=== PATIENT | female | born 1980 | race African-American/Black ===

== ENCOUNTER 2016-09-15 19:46 | Outpatient (CLI) | payer SELFPAY ==
[~2016-09-15] VITALS: Ht 160 cm; Wt 85.0 kg
[~2016-09-15 19:46] MED LIST: NORCO 325 MG-51 TAB PO
[2016-09-15 19:48] VITALS: BP 112/71; PULSE 90; TEMP 98.3
== END 2016-09-15 21:35 | disposition home or self-care (01) ==
LOC: LDRO 19:46 → LDR 19:47 → LDRO 21:35
DX: O47.03 False labor before 37 completed weeks of gestation, third trimester (principal); O09.33 Supervision of pregnancy with insufficient antenatal care, third trimester; O99.333 Smoking (tobacco) complicating pregnancy, third trimester; F17.210 Nicotine dependence, cigarettes, uncomplicated; Z3A.36 36 weeks gestation of pregnancy
CPT/HCPCS: OP

== ENCOUNTER 2016-10-02 12:25 | Inpatient (IN) | payer SELFPAY ==
[~2016-10-02] VITALS: Ht 160 cm; Wt 86.4 kg
[2016-10-02] VITALS (18 sets, daily range): BP systolic 92–135; BP diastolic 48–84; PULSE 67–86; TEMP 97.4–98.2
[2016-10-02 12:51] LABS: BASO % 0.3 % (0.0-2.0); EOS # 0.1 (0.0-0.7); EOS % 0.5 % (0-4.0); GRAN # 10.1 (1.4-6.5); GRAN % 77.7 % (42.2-75.2); LYMPH # 1.6 (1.2-3.4); LYMPH % 12.2 % (20.0-51.0); MEAN CELL VOLUME 79 fl (80.0-100.0); MEAN CORPUSCULAR HGB CONC 32 g/dl (33.0-37.0); MEAN PLATELET VOLUME 11.1 fl (7.4-10.4); MONO # 1.1 (0.1-0.6); MONO % 8.6 % (1.7-9.3); PLATELET COUNT 187 K/mm3 (130-400); RED BLOOD COUNT 4.07 M/mm3 (4.10-5.30); REDCELL DISTRIBUTION WIDTH-CV 14.6 % (11.5-14.5)
[2016-10-02 12:58] LABS: HEMOGLOBIN 10.3 g/dl (12.5-16.0); MEAN CORPUSCULAR HEMOGLOBIN 25 pg (27.0-31.0)
[2016-10-02 13:18] LABS: AMPHETAMINE URINE NEGATIVE; BARBITURATES URINE NEGATIVE; BENZODIAZEPINES URINE NEGATIVE; BUPRENORPHINE URINE NEGATIVE; METHADONE URINE NEGATIVE; OPIATES URINE NEGATIVE; OXYCODONE URINE NEGATIVE; PHENCYCLIDINE URINE NEGATIVE; PROPOXYPHENE URINE NEGATIVE; THC CANNABINOIDS URINE NEGATIVE
[2016-10-03 05:23] VITALS: BP 115/84; PULSE 83; TEMP 97.8
[2016-10-03 09:00] VITALS: BP 123/67; PULSE 86; TEMP 98
[2016-10-03 12:15] VITALS: BP 117/67; PULSE 83; TEMP 97.6
[2016-10-03 17:00] VITALS: BP 115/70; PULSE 83; TEMP 97.6
[2016-10-03 19:30] VITALS: BP 100/56; PULSE 86; TEMP 98.6
[2016-10-04 07:15] VITALS: BP 113/71; PULSE 83
[2016-10-04] MEDS ORDERED: IBU800 M1 PO (09:13)
[2016-10-04] MEDS ORDERED: PERCOCET 325 MG1 TA2 PO (09:14)
[2016-10-04 16:25] VITALS: BP 112/72; PULSE 79; TEMP 98.5
[2016-10-04 21:00] VITALS: BP 121/68; PULSE 87; TEMP 98
[2016-10-05 01:00] VITALS: BP 118/70; PULSE 72; TEMP 98.2
[2016-10-05 08:14] VITALS: BP 118/62; PULSE 72
== END 2016-10-05 15:35 | disposition home or self-care (01) | DRG 766 ==
LOC: LDRO 12:25 → LDR 12:30 → OB 12:30
PROVIDERS: Obstetrics & Gynecology
PROC: 10D00Z0 Extraction of Products of Conception, High, Open Approach (ICD-10-PCS; principal; 2016-10-02)
DX: O42.02 Full-term premature rupture of membranes, onset of labor within 24 hours of rupture (principal); O77.0 Labor and delivery complicated by meconium in amniotic fluid; O34.211 Maternal care for low transverse scar from previous cesarean delivery; N85.8 Other specified noninflammatory disorders of uterus; O09.33 Supervision of pregnancy with insufficient antenatal care, third trimester; O99.334 Smoking (tobacco) complicating childbirth; F17.210 Nicotine dependence, cigarettes, uncomplicated; O09.523 Supervision of elderly multigravida, third trimester; Z3A.39 39 weeks gestation of pregnancy; Z37.0 Single live birth
CPT/HCPCS: J0690; J2175; J2250; J2270; J2370; J2405; J7120

== ENCOUNTER 2018-06-22 14:46 | Emergency (ER) | payer SELFPAY ==
[~2018-06-22] VITALS: Ht 160 cm; Wt 90.0 kg
[~2018-06-22 14:46] MED LIST changes: +IBU800 M1 PO; +PERCOCET 325 MG1 TA2 PO
[2018-06-22 14:53] VITALS: BP 129/70; TEMP 98.9
[2018-06-22 15:45] LABS: COLLECTION METHOD CLEAN CATCH
[2018-06-22 16:05] LABS: MUCOUS Present /lpf; PH 6 (5-8); SQUAMOUS EPITHELIAL 0-2 /hpf; URINE APPEARANCE Clear; URINE BACTERIA None Seen /hpf; URINE BILIRUBIN Negative (NEGATIVE); URINE BLOOD Negative (NEGATIVE); URINE COLOR Yellow; URINE GLUCOSE Negative (NEGATIVE); URINE KETONE Negative (NEGATIVE); URINE LEUKOCYTE ESTERASE Negative (NEGATIVE); URINE NITRATE Negative (NEGATIVE); URINE PROTEIN(semi-quant) Negative (NEGATIVE); URINE RBC 0-2 /hpf; URINE UROBILINOGEN Negative (NEGATIVE)
[2018-06-22 16:23] VITALS: PULSE 86
== END 2018-06-22 16:34 | disposition home or self-care (01) ==
LOC: COL.ER 14:46
PROVIDERS: Physician Assistant
DX: Z32.00 Encounter for pregnancy test, result unknown (principal); Z98.890 Other specified postprocedural states; Z87.891 Personal history of nicotine dependence

== ENCOUNTER 2018-08-04 13:47 | Emergency (ER) | payer MEDICAID ==
[~2018-08-04] VITALS: Ht 160 cm; Wt 90.0 kg
[2018-08-04 13:58] VITALS: TEMP 98.1
[2018-08-04 14:45] VITALS: BP 128/59; PULSE 69
== END 2018-08-04 14:47 | disposition home or self-care (01) ==
LOC: COL.ER 13:47
DX: H61.21 Impacted cerumen, right ear (principal)

== ENCOUNTER 2018-12-01 13:27 | Emergency (ER) | payer MEDICAID ==
[~2018-12-01] VITALS: Ht 160 cm; Wt 81.8 kg
[2018-12-01 13:34] VITALS: BP 137/90; PULSE 77; TEMP 98
== END 2018-12-01 15:21 | disposition home or self-care (01) ==
LOC: COL.ER 13:27
PROVIDERS: Physician Assistant
DX: R10.30 Lower abdominal pain, unspecified (principal); Z98.890 Other specified postprocedural states; Z87.891 Personal history of nicotine dependence

== ENCOUNTER 2019-04-12 21:25 | Emergency (ER) | payer MEDICAID ==
[~2019-04-12] VITALS: Ht 160 cm; Wt 81.8 kg
[2019-04-12 21:43] VITALS: BP 125/76; PULSE 76; TEMP 96.9
[2019-04-13 00:37] LABS: STREP SCREEN NEGATIVE
== END 2019-04-13 01:05 | disposition home or self-care (01) ==
LOC: COL.ER 21:25
PROVIDERS: Physician Assistant
DX: J02.9 Acute pharyngitis, unspecified (principal)
CPT/HCPCS: J1100

== ENCOUNTER 2021-03-04 16:23 | Emergency (ER) | payer MEDICAID ==
[~2021-03-04] VITALS: Ht 160 cm; Wt 90.9 kg
[2021-03-04 17:05] VITALS: TEMP 99.1
[2021-03-04 17:28] LABS: COLLECTION METHOD CLEAN CATCH
[2021-03-04 17:46] LABS: MUCOUS Present /lpf; PH 6 (5-8); URINE APPEARANCE Cloudy; URINE BACTERIA Rare /hpf; URINE BILIRUBIN Negative (NEGATIVE); URINE BLOOD 1+ (NEGATIVE); URINE COLOR Amber; URINE GLUCOSE Negative (NEGATIVE); URINE KETONE Trace (NEGATIVE); URINE LEUKOCYTE ESTERASE Trace (NEGATIVE); URINE NITRATE Negative (NEGATIVE); URINE PROTEIN(semi-quant) 2+ (NEGATIVE); URINE UROBILINOGEN >=4.0 mg/dL (NEGATIVE)
[2021-03-04 18:45] LABS: HEMATOCRIT 42.9 % (37.0-47.0); HEMOGLOBIN 14.2 g/dl (12.5-16.0); MEAN CELL VOLUME 82 fl (80.0-100.0); MEAN CORPUSCULAR HEMOGLOBIN 27 pg (27.0-31.0); MEAN CORPUSCULAR HGB CONC 33 g/dl (33.0-37.0); MEAN PLATELET VOLUME 11.7 fl (7.4-10.4); PLATELET COUNT 202 K/mm3 (130-400); RED BLOOD COUNT 5.22 M/mm3 (4.10-5.30); REDCELL DISTRIBUTION WIDTH-CV 12.6 % (11.5-14.5)
[2021-03-04 18:58] LABS: ALBUMIN 4.5 gm/dL (3.5-5.0); POTASSIUM 3.8 mmol/L (3.4-5.0); TOTAL PROTEIN 8.4 gm/dL (6.4-8.2)
[2021-03-04] MEDS ORDERED: ZOFRAN ODT4 MG PO (19:03)
[2021-03-04] MEDS ORDERED: CEFTIN500 MG PO (19:03)
[2021-03-04 19:10] LABS: BILIRUBIN,TOTAL 0.8 mg/dL (0.0-1.0); CALCIUM 8.9 mg/dL (8.4-10.2); CREATININE, serum 0.58 (0.52-1.25)
[2021-03-04 19:32] LABS: BAND 5 % (0-10); EOSINOPHIL 1 % (0-4); LYMPHOCYTE 20 % (20.0-51.0); NEUTROPHILS 61 % (42.0-75.2); PLATELET ESTIMATE NORMAL (NORMAL)
[2021-03-04 19:45] VITALS: BP 120/77; PULSE 87
== END 2021-03-04 19:45 | disposition home or self-care (01) ==
LOC: COL.ER 16:23
PROVIDERS: Physician Assistant
DX: U07.1 COVID-19 (principal); N39.0 Urinary tract infection, site not specified; Z32.02 Encounter for pregnancy test, result negative
CPT/HCPCS: J0696; J1885; J2405; J7030

== ENCOUNTER 2021-04-26 17:02 | Emergency (ER) | payer MEDICAID ==
[~2021-04-26] VITALS: Ht 160 cm; Wt 95.0 kg
[~2021-04-26 17:02] MED LIST changes: +CEFTIN500 MG PO; +ZOFRAN ODT4 MG PO
[2021-04-26 17:54] LABS: COLLECTION METHOD CLEAN CATCH
[2021-04-26 18:03] LABS: MUCOUS Present /lpf; PH 6 (5-8); URINE APPEARANCE Hazy; URINE BACTERIA None Seen /hpf; URINE BILIRUBIN Negative (NEGATIVE); URINE BLOOD Negative (NEGATIVE); URINE COLOR Yellow; URINE GLUCOSE Negative (NEGATIVE); URINE KETONE Negative (NEGATIVE); URINE LEUKOCYTE ESTERASE Negative (NEGATIVE); URINE NITRATE Negative (NEGATIVE); URINE PROTEIN(semi-quant) Negative (NEGATIVE); URINE RBC None Seen /hpf; URINE UROBILINOGEN Negative (NEGATIVE)
[2021-04-26 18:41] LABS: BASO % 0.5 % (0.0-2.0); EOS # 0.1 (0.0-0.7); EOS % 1.5 % (0-4.0); GRAN # 3.3 (1.4-6.5); GRAN % 53.9 % (42.2-75.2); HEMATOCRIT 42.8 % (37.0-47.0); HEMOGLOBIN 14.1 g/dl (12.5-16.0); LYMPH # 2.2 (1.2-3.4); MEAN CELL VOLUME 84 fl (80.0-100.0); MEAN CORPUSCULAR HEMOGLOBIN 28 pg (27.0-31.0); MEAN CORPUSCULAR HGB CONC 33 g/dl (33.0-37.0); MEAN PLATELET VOLUME 11.4 fl (7.4-10.4); MONO # 0.6 (0.1-0.6); MONO % 8.9 % (1.7-9.3); PLATELET COUNT 177 K/mm3 (130-400); RED BLOOD COUNT 5.12 M/mm3 (4.10-5.30)
[2021-04-26 19:09] LABS: ALBUMIN 4.2 gm/dL (3.5-5.0); BILIRUBIN,TOTAL 0.6 mg/dL (0.2-1.2); C-REACTIVE PROTEIN 0.5 mg/dL (0.00-0.50); CALCIUM 9.5 mg/dL (8.4-10.2); CREATININE, serum 0.77 mg/dL (0.57-1.11); POTASSIUM 4.3 mmol/L (3.5-4.5); TOTAL PROTEIN 8.1 gm/dL (6.2-8.1)
[2021-04-26 19:29] LABS: TSH w REFLEX 1.139 uIU/mL (0.350-4.940)
[2021-04-26 20:01] VITALS: BP 120/87; PULSE 79; TEMP 97.9
[2021-04-27 08:56] LABS: TRICYCLIC ANTIDEPRESS URINE NEGATIVE
== END 2021-04-26 20:06 | disposition home or self-care (01) ==
LOC: COL.ER 17:02
PROVIDERS: Family Medicine
DX: U07.1 COVID-19 (principal); N39.0 Urinary tract infection, site not specified; Z32.02 Encounter for pregnancy test, result negative

== ENCOUNTER 2021-11-26 12:49 | Emergency (ER) | payer MEDICAID ==
[~2021-11-26] VITALS: Ht 160 cm; Wt 90.9 kg
[2021-11-26 14:35] LABS: BASO # 0.1 K/mm3 (0.0-0.2); BASO % 0.7 % (0.0-2.0); EOS # 0.1 K/mm3 (0.0-0.7); EOS % 0.8 % (0.0-4.0); GRAN # 4.3 K/mm3 (1.4-6.5); GRAN % 57.1 % (42.2-75.2); HEMATOCRIT 49.2 % (37.0-47.0); HEMOGLOBIN 16.2 g/dl (12.5-16.0); LYMPH # 2.2 K/mm3 (1.2-3.4); LYMPH % 29.5 % (20.0-51.0); MEAN CELL VOLUME 83 fl (80.0-100.0); MEAN CORPUSCULAR HEMOGLOBIN 27 pg (27-31); MEAN CORPUSCULAR HGB CONC 33 g/dl (33.0-37.0); MEAN PLATELET VOLUME 11.6 fl (7.4-10.4); MONO # 0.9 K/mm3 (0.1-0.6); MONO % 11.8 % (1.7-9.3); PLATELET COUNT 198 K/mm3 (130-400); RED BLOOD COUNT 5.95 M/mm3 (4.10-5.30); REDCELL DISTRIBUTION WIDTH-CV 13.5 % (11.5-14.5)
[2021-11-26 14:52] LABS: ALBUMIN 4.9 gm/dL (3.5-5.0); BILIRUBIN,TOTAL 0.6 mg/dL (0.2-1.2); CALCIUM 9.7 mg/dL (8.4-10.2); CREATININE, serum 0.99 mg/dL (0.57-1.11); TOTAL PROTEIN 9.1 gm/dL (6.2-8.1)
[2021-11-26 16:35] VITALS: BP 143/116; PULSE 84; TEMP 97
== END 2021-11-26 16:35 | disposition home or self-care (01) ==
LOC: COL.ER 12:49
PROVIDERS: Physician Assistant
DX: B34.9 Viral infection, unspecified (principal); E86.0 Dehydration; F17.200 Nicotine dependence, unspecified, uncomplicated; Z20.822 Contact with and (suspected) exposure to COVID-19; Z28.310 Unvaccinated for COVID-19
CPT/HCPCS: J7030

== ENCOUNTER 2022-05-31 20:39 | Emergency (ER) | payer MEDICAID ==
[~2022-05-31] VITALS: Ht 160 cm; Wt 80.9 kg
[2022-05-31 20:57] VITALS: TEMP 97.2
[2022-05-31 22:33] VITALS: BP 154/70; PULSE 76
== END 2022-05-31 22:33 | disposition home or self-care (01) ==
LOC: COL.ER 20:39
DX: B34.9 Viral infection, unspecified (principal); R50.9 Fever, unspecified; R52 Pain, unspecified; Z20.822 Contact with and (suspected) exposure to COVID-19